=== PATIENT | female | born 1990 | race Two or more races ===

== ENCOUNTER 2024-08-07 15:59 | Observation (INO) | payer MEDICAID, SELFPAY ==
[2024-08-07 16:17] VITALS: BP 143/81; PULSE 81; RESP 18; TEMP 36.3; O2SAT 98; BMI 46.4
--- NOTE | 2024-08-07 16:39 | XR_ITS ---
Examination: Complete OB ultrasound greater than 14 weeks Date and time of exam: August 07, 2024 1727 hours INDICATIONS: Leaking amniotic fluid 3 weeks Findings: Viable intrauterine single fetus with single amniotic sac presentation cephalic spine maternal right Cardiac motion 145 BPM Placenta anterior grade 1 Umbilical cord insertion 3 vessel seen Amniotic fluid index 26 cm Cervix 6.1 cm closed Ovaries obscured by bowel gas. Composite estimated gestational age based on BPD, head circumference, abdominal circumference, femur length is 29 weeks 1 day Estimated weight 1316 g. Survey of intracranial anatomy, spinal anatomy, abdominal anatomy, four-chamber heart performed with no abnormalities identified. Impression: Viable intrauterine gestation cephalic presentation Amniotic fluid index 26.0 cm.
[2024-08-07 17:08] LABS: ROM Kit Lot # 57802192; ROM Swab Mixed By: YOUNB; Rupture of Fetal Membranes Negative (Negative); Swb Mxed in Solvent 1 min? Yes
[2024-08-07 18:31] VITALS: BP 150/80; PULSE 74; RESP 18; TEMP 36.3; O2SAT 98
[2024-08-07 18:56] LABS: FFN Specimen Descripton Clr Colrless Aqueous; Fetal Fibronectin Negative (Negative)
[2024-08-07 19:21] VITALS: BP 133/61; PULSE 81
== END 2024-08-07 19:50 | disposition home or self-care (01) ==
PROVIDERS: Admitting Provider Specialist; Visit Provider Specialist
DX: Z34.83 Encounter for supervision of other normal pregnancy, third trimester (principal); Z3A.28 28 weeks gestation of pregnancy
CPT/HCPCS: 59025; 59899; 76805; 82731; 84112

== ENCOUNTER 2024-09-26 20:51 | Observation (INO) | payer MEDICAID, SELFPAY ==
[2024-09-26 21:11] VITALS: BP 132/65; PULSE 85; RESP 100; RESP 19; TEMP 36.5
[2024-09-26 21:23] VITALS: TEMP 36.5; BMI 48.4
== END 2024-09-26 22:32 | disposition home or self-care (01) ==
PROVIDERS: Admitting Provider Specialist; Visit Provider Specialist
DX: O36.8130 Decreased fetal movements, third trimester, not applicable or unspecified (principal); O26.893 Other specified pregnancy related conditions, third trimester; M54.50 Low back pain, unspecified; R10.9 Unspecified abdominal pain; Z3A.35 35 weeks gestation of pregnancy
CPT/HCPCS: 59025; 59899

== ENCOUNTER 2024-10-07 14:59 | Observation (INO) | payer MEDICAID, SELFPAY ==
[2024-10-07 15:14] VITALS: BP 136/86; PULSE 115
[2024-10-07 15:19] VITALS: RESP 16; TEMP 36.7; O2SAT 96; BMI 48.9
[2024-10-07 15:53] LABS: ROM Kit Lot # 57809118; Swb Mxed in Solvent 1 min? Yes
[2024-10-07 15:54] LABS: ROM Swab Mixed By: HILEL; Rupture of Fetal Membranes Negative (Negative)
--- NOTE | 2024-10-07 16:13 | XR_ITS ---
Examination: Complete OB ultrasound greater than 14 weeks Date and time of exam: October 07, 2024 1631 hrs. Indications: Onset pelvic contractions pelvic pressure and leaking amniotic fluid beginning 3 days ago, labor evaluation Findings: Viable intrauterine single fetus with single amniotic sac presentation transverse head maternal left Cardiac motion 136 BPM Placenta anterior grade 2 Umbilical cord insertion 3 vessel seen Amniotic fluid index 14.8 cm Cervix 4.0 cm Ovaries obscured by bowel gas. Composite estimated gestational age based on BPD, head circumference, abdominal circumference, femur length is 37 weeks 4 days Estimated weight 3135.7 g. Survey of intracranial anatomy, spinal anatomy, abdominal anatomy, four-chamber heart performed with no abnormalities identified. Impression: Viable intrauterine gestation transverse presentation Estimated gestational age 37 weeks 4 days Estimated weight 3135.7 g.
[2024-10-07 17:01] VITALS: BP 131/71; PULSE 84
[2024-10-07 17:09] VITALS: BP 136/86; PULSE 115; RESP 16; RESP 96; TEMP 36.7
== END 2024-10-07 18:40 | disposition home or self-care (01) ==
PROVIDERS: Admitting Provider Specialist; Visit Provider Specialist
DX: O26.893 Other specified pregnancy related conditions, third trimester (principal); R10.9 Unspecified abdominal pain; O32.2XX0 Maternal care for transverse and oblique lie, not applicable or unspecified; Z3A.37 37 weeks gestation of pregnancy
CPT/HCPCS: 59025; 59899; 76805; 84112

== ENCOUNTER 2024-10-10 00:20 | Inpatient (IN) | payer MEDICAID, SELFPAY ==
[2024-10-10] VITALS (331 sets, daily range): BP systolic 0–197; BP diastolic 0–99; PULSE 69–142; RESP 16–19; TEMP 36.4–37.6; O2SAT 91–100; BMI 107.9; BMI 48.9
--- NOTE | 2024-10-10 00:58 | XR_ITS ---
Examination: age limited TECHNIQUE: Limited transabdominal sonographic images pelvis Standard blank line October 10, 2024 0149 hours INDICATIONS: Unknown presentation FINDINGS: Viable intrauterine gestation cephalic presentation Serial spine maternal right Cardiac motion 130 bpm IMPRESSION: Viable intrauterine gestation cephalic presentation
[2024-10-10] MEDS: MISOPROSTOL 50 mCg TABLET PO ×3 (03:40→12:39)
[2024-10-10 05:26] LABS: Syphilis Nonreactive (Nonreactive)
[2024-10-10 07:52] LABS: Basophils % (Auto) 0 % (0-2.5); Eosinophils # (Auto) 0.1 Thou/mm3 (0.0-0.5); Eosinophils % (Auto) 1 % (0-10); Hematocrit 34.8 % (36.0-46.0); Hemoglobin 11.8 g/dL (12.0-16.0); Immature Granulocytes % (Auto) 2 % (0-0); Immature Granulocytes Auto 0.21 Thou/mm3 (0.00-0.00); Lymphocytes # (Auto) 2.6 Thou/mm3 (1.0-4.8); Lymphocytes % (Auto) 25 % (10-50); Mean Corpuscular HGB Conc 33.9 g/dl (31.0-37.0); Mean Corpuscular Volume 80 fL (80-100); Monocytes % (Auto) 10 % (0-12); Neutrophils # (Auto) 6.6 Thou/mm3 (1.8-7.7); Neutrophils % (Auto) 62 % (37-80); Nucleated Red Blood Cell % 0 /100 WBC (0); Platelet Count 326 Thou/mm3 (140-440); RDW Standard Deviation 39.3 fL (36.4-46.3); Red Blood Count 4.37 Miln/mm3 (4.00-5.20); White Blood Count 10.6 Thou/mm3 (3.6-11.0)
--- NOTE | 2024-10-10 08:12 | PC.NURSE ---
[facility] downtime occurred on 10/10/24 from 0100 to 0700.
--- NOTE | 2024-10-10 09:11 | PD.LDHP ---
Documentation for date of: 10/10/24 OB Labor/Induct. HPI History of Present Illness History of present illness: H and P dictated on STAT line #9 in [place] [id number] Meds Home Medications and Allergies Home Medications ?Medication ?Instructions ?Recorded ?Confirmed ?Type loratadine 10 mg tablet (Claritin) 10 mg PO QDAY 08/07/24 10/07/24 History vit no.95-ferrous 1 tab PO QDAY 08/07/24 10/07/24 History fumarate 28 mg-folic acid 800 mcg tablet () Allergies Allergy/AdvReac Type Severity Reaction Status Date / Time aspirin Allergy Severe swollen Verified 10/10/24 08:31 lips guaifenesin AdvReac Mild ANXIETY, Verified 10/10/24 08:31 CAN'T SLEEP OB Exam Physical Exam Vital signs: Temp Pulse Resp BP Pulse Ox 98.3 F 75 19 128/74 98 10/10/24 07:03 10/10/24 09:06 10/10/24 07:03 10/10/24 09:06 10/10/24 09:11 OB Results Labs 10/10/24 01:10 Labs: Short CBC 10/10/24 Range/Units 01:10 WBC 10.6 (3.6-11.0) Thou/mm3 Hgb 11.8 L (12.0-16.0) g/dL Hct 34.8 L (36.0-46.0) % Plt Count 326 (140-440) Thou/mm3
[2024-10-10] MEDS: fentaNYL CIT INJ 50 mCg/ML AMP 2ML 100 MCG IV (14:53)
[2024-10-10] MEDS: RINGERS LACTATED 1000 ML 1,000 ML 100 ML IV ×2 (16:30→17:33)
[2024-10-10] MEDS: Ampicillin Inj 2,000 MG in SODIUM CHLORIDE 0.9% (P) 100 ML 100 MG IV (21:39)
[2024-10-10] MEDS: OXYTOCIN in NS 30 units 30 UNIT/500 ML BAG IV (21:55)
[2024-10-11] VITALS (40 sets, daily range): BP systolic 0–152; BP diastolic 0–92; PULSE 72–144; RESP 17–20; TEMP 36.6–37.2; O2SAT 91–100
--- NOTE | 2024-10-11 00:45 | PD.LDPN ---
Documentation for date of: 10/11/24 OB Labor Progress Note Pain Control Comments: epidural Pelvic Exam Dilation (cm): 6 Effacement (%): 70 station: -1 Amniotic membrane status: Ruptured Contractions Contraction frequency: q 3 min Status Comments: Category II Assessment and Plan Comments: Arrest of Dilation Informed consent was obtained. The patient was made aware of the risks, complications, alternatives and benefits of the proposed procedure and she agrees.
[2024-10-11] MEDS: ceFAZolin/D5W 2 GM IV 2 GM/100 ML BAG IV ×4 (00:55→21:26)
[2024-10-11] MEDS: FAMOTIDINE INJ 10 MG/ML VIAL 2 ML 20 MG IV (00:55)
[2024-10-11] MEDS: CITRIC ACID/SODIUM CITR 15 ML UDC (BICITRA) 30 ML PO (00:55)
--- NOTE | 2024-10-11 01:14 | PD.LDDS ---
DS: Providers Provider Date of admission: 10/10/24 00:57 Primary care physician: Physician No Primary/Family Admitting Provider: Greg Robledo MD Attending Provider on Admission: Greg Robledo MD Attending Provider on DC: Greg Robledo MD Discharging Provider: Greg Robledo MD DS: Diagnosis Problem List Completed Was Problem List Reviewed/Reconciled?: Yes Summary/Hosp Course Brief History: H and P dictated on STAT line #9 in [facility] [id number] Time Spent with Patient Time attestation: Total time spent providing and/or coordinating discharge services: Exam Vital Signs Temp Pulse Resp BP Pulse Ox 99.6 F 116 H 16 113/55 L 97 10/10/24 23:35 10/11/24 01:05 10/10/24 18:00 10/11/24 01:05 10/11/24 01:07 Discharge Plan Plan Patient Disposition: HOME (Self Care) Patient condition on transfer: Stable Prescriptions/Referrals Prescriptions/Med Rec: New hydrocodone-acetaminophen 5-325 mg tablet 1 tab PO Q6H MDD 4 PRN (Reason: pain) Qty: 20 0RF Continued PNV cmb#95-ferrous fumarate-FA [] 28 mg iron- 800 mcg Tablet 1 tab PO QDAY loratadine [Claritin] 10 mg Tablet 10 mg PO QDAY Referrals: No Primary/Family,Physician [Primary Care Provider] - Patient/Caregiver Discharge Instructions Discharge Activity: activity as tolerated Other Discharge Activity Instructions:: Follow up office 1 week Print Language: Sammarinese Stand Alone Forms: [facility] Award Info., Patient Portal Info Letter Discharge Order Discharge Orders: Discharge (Routine); Ordered 10/13/24 Ordered By: Greg Robledo Planned Discharge Date 10/13/24
[2024-10-11] MEDS: OXYTOCIN in NS 20 units 20 UNIT/1,000 ML BAG 999 UNIT IV ×2 (02:45→05:20)
[2024-10-11] MEDS: ACETAMINOPHEN IVPB 1,000 MG/100 ML VIAL 250 MG IV (05:58)
--- NOTE | 2024-10-11 08:35 | PD.LDDELS ---
Data (Morrison) Data Hx Section: No : 5 Para: 2 Term: 2 : 0 : 2 Delivery Data (Morrison) Labor Data ROM Date: 10/09/24 ROM Time: 23:30 Rupture Type: SROM Amniotic Fluid: Clear Delivery Data EDC: 10/26/24 EDC calculated by:: LMP/early US confirmation Labor Onset Stage 1 Date: 10/10/24 Labor Onset Stage 1 Time: 16:03 Labor Onset Stage 2 Date: 10/11/24 Labor Onset Stage 2 Time: 01:15 Delivery Date: 10/11/24 Delivery Time: :44 Gestational age (weeks): 37 Gestational age (days): 6 Placenta Delivery Date: 10/11/24 Placenta Delivery Time: 01:45 Delivered by: Greg Robledo Delivery nurse: Adriana Badillo Other staff at delivery: TARA Other staff at delivery: Nurse Other staff at delivery: Scar Pederson Other staff at delivery: Gladys Aggarwal Delivery Method Delivery: Delivery Type: Primary Presentation: Vertex (Occiput posterior) Position: OP Anesthesia Type Primary Anesthesia: Epidural Secondary Anesthesia: Epidural Placenta Placenta Delivery: Manual Placenta Cultures Obtained: No Placenta Sent for Examination: No Cord Sample: Cord Blood Obtained EBL Estimated blood loss (ml): 900 Umbilical Cord Nuchal Cord: x1 Tightly Additional Procedures None Complications Complications: None Data (Morrison) Data Infant Gender: Male Infant Weight Grams: 3475 1 Minute Total: 8 5 Minute Total: 9
[2024-10-11 09:00] LABS: Basophils # (Auto) 0.1 Thou/mm3 (0.0-0.2); Basophils % (Auto) 0 % (0-2.5); Eosinophils % (Auto) 0 % (0-10); Hematocrit 31.9 % (36.0-46.0); Hemoglobin 10.7 g/dL (12.0-16.0); Immature Granulocytes % (Auto) 1 % (0-0); Immature Granulocytes Auto 0.19 Thou/mm3 (0.00-0.00); Lymphocytes # (Auto) 1.1 Thou/mm3 (1.0-4.8); Lymphocytes % (Auto) 6 % (10-50); Mean Corpuscular HGB Conc 33.5 g/dl (31.0-37.0); Mean Corpuscular Hemoglobin 26.6 pg (25.0-35.0); Mean Corpuscular Volume 79 fL (80-100); Monocytes # (Auto) 0.8 Thou/mm3 (0.0-0.8); Monocytes % (Auto) 5 % (0-12); Neutrophils # (Auto) 16.2 Thou/mm3 (1.8-7.7); Neutrophils % (Auto) 88 % (37-80); Nucleated Red Blood Cell % 0 /100 WBC (0); Platelet Count 308 Thou/mm3 (140-440); RDW Standard Deviation 40.2 fL (36.4-46.3); Red Blood Count 4.02 Miln/mm3 (4.00-5.20); White Blood Count 18.3 Thou/mm3 (3.6-11.0)
[2024-10-11] MEDS: HYDROcodone/APAP 5/325 TABLET 1 TAB PO ×3 (09:27→23:35)
--- NOTE | 2024-10-11 15:33 | ESOP_ITS ---
RE: DEBBIE CAMACHO : 1990 DATE OF OPERATION: 10/11/2024 PREOPERATIVE DIAGNOSES: 1. Intrauterine at 37 weeks and 6 days. 2. Premature rupture of membranes. 3. Prolonged rupture of membranes. 4. Induction of labor. 5. Arrest of dilatation. POSTOPERATIVE DIAGNOSES: 1. Intrauterine at 37 weeks and 6 days. 2. Premature rupture of membranes. 3. Prolonged rupture of membranes. 4. Induction of labor. 5. Arrest of dilatation. 6. Occiput posterior. 7. Tight nuchal cord. PROCEDURE PERFORMED: A primary low transverse section via Pfannenstiel skin incision. SURGEON: Greg Robledo DO RADIOACTIVE WASTE DISPOSAL DISPATCHER: LLUVIA Wyman ANESTHESIA: Epidural. ANESTHESIOLOGIST: Scra Baez CRNA ESTIMATED BLOOD LOSS: 900 mL. COMPLICATIONS: None. COUNTS: Correct. PATHOLOGY: None. FINDINGS: A live male . Cephalic presentation. Clear amniotic fluid. , see RN notes. Placenta removed completely intact. Uterus, ovaries, fallopian tubes grossly within normal limits. DESCRIPTION OF PROCEDURE: After proper informed consent was obtained and the patient was made aware of the risks, complications, alternatives, benefits of the proposed procedure, she was taken to the operating room where she underwent induction of epidural anesthesia. She was prepped and draped in the usual sterile fashion. A timeout was performed. A Pfannenstiel skin incision was made with scalpel, carried through to the underlying layer of the fascia with the Bovie. The fascia was nicked in the midline. Incision extended bilaterally with the Bovie. The inferior aspect of the fascial incision was grasped with Mary clamps and elevated. The underlying rectus muscle was dissected off with the Bovie. The rectus muscles were at the midline. The peritoneum identified between two Chester clamps and entered sharply with the Metzenbaum scissors. The incision was extended superiorly inferiorly with good visualization of the bladder. The bladder blade was then inserted. The vesicouterine peritoneum was incised transversely and the bladder flap created digitally. Bladder blade was reinserted. The lower uterine segment was incised in transverse fashion with the scalpel. The incision was extended bilaterally digitally. The 's head was delivered. The mouth and nose was suctioned with a bulb suction. The nuchal cord was reduced. Shoulder and body delivered atraumatically. The cord was camped and cut. The was sent off to awaiting pediatric staff. Cord blood and gases were sent. The placenta was then removed manually. The uterus exteriorized and cleared of all clots and debris. The uterus incision was repaired with #1-0 chromic catgut suture in running locking fashion. The second layer of same suture was used to imbricate the first layer and obtained excellent hemostasis. The vesicouterine peritoneum was closed with 2-0 chromic catgut suture in running fashion. The uterus was returned to the abdomen. The gutters were cleared off all clots and debris. The fundus was firm. The peritoneum was closed with the chromic catgut suture in running fashion. The muscle was closed with the chromic catgut suture in running fashion. The fascia was closed with #0 Vicryl beginning at each angle and ending center in running fashion. Subcutaneous tissue was irrigated with normal saline solution, found to be hemostatic, closed with 2-0 chromic catgut suture in running fashion. The skin was closed with 4-0 Monocryl. A Dermabond Prineo dressing was applied. A sterile pressure dressing was applied. She tolerated the procedure well. Counts were correct. I discussed with the patient the nature of her condition, the intraoperative findings, expectation for recovery. All questions were answered. DT: 02:25:33 TT: 03:52:00 Ref: [id number] - TID: [id number]
[2024-10-11] MEDS: ACETAMINOPHEN 325 MG TABLET 650 MG PO (18:12)
[2024-10-12 00:35] VITALS: BP 121/78; PULSE 96; RESP 16; TEMP 36.7; O2SAT 97
[2024-10-12 07:42] VITALS: BP 133/78; PULSE 95; RESP 17; TEMP 36.8
--- NOTE | 2024-10-12 07:49 | ESPR_ITS ---
RE: DEBBIE CAMACHO : 1990 DATE OF SERVICE: 10/12/2024 SUBJECTIVE: Postop day #1, the patient denies any problem or complaints. She is voiding. She is ambulating. She is tolerating diet. She is passing flatus. She denies any excessive vaginal bleeding. She denies any dizziness or lightheadedness. She denies any chest pain, palpitations, shortness of breath or lower extremity pain. OBJECTIVE: Vital Signs: Blood pressure 121/78, heart rate 96, respirations 16, temperature is 98, pulse ox is 97% on room air. Lungs: Clear to auscultation bilaterally. Heart: Regular rate and rhythm. Abdomen: Fundus is firm. Incision is clear and intact. Extremities: Nontender. No edema. LABORATORY DATA: Hemoglobin pre-delivery is 11.8, post delivery is 10.7. ASSESSMENT: Postop day #1, status post delivery. PLAN: Encourage ambulation, support, possible discharge home tomorrow. DT: 06:42:33 TT: 07:47:00 Ref: [id number] - TID: [id number]
[2024-10-12] MEDS: Milk Of Magnesia Susp 30 ML UDC PO (09:03)
[2024-10-12] MEDS: ACETAMINOPHEN 325 MG TABLET 650 MG PO ×2 (09:04→17:04)
[2024-10-12] MEDS: ENOXAPARIN SOD INJ 40 MG/0.4 ML SYRINGE SC (09:04)
--- NOTE | 2024-10-12 11:01 | PC.SS ---
PAGE DESIGNER conducted bedside contact with the patient to address nursing referral indicating patient possessed history of depression.? PAGE DESIGNER introduced self and role.? Present with the patient was Gareth CARLOS .? Patient gave permission for PAGE DESIGNER to discuss referral in presence of FOB.? Patient confirmed history of depression.? Patient stated that depressive mood due to patient experiencing miscarriage last year.? Patient stated that depressive state has been resolved.? Patient confirmed presence of depressive mood circumstantial with trigger identified as miscarriage.? Patient denies participation with mental health services or possession of mental health diagnosis.? Patient denies impairment with daily functioning.? Patient denies current intent/plan of SI/HI.? FOB disclosed no concerns with patient?s current functioning.? [place], [place]; was delivered via .? is the patinet?s 3rd child. ?Other children are ages, 16 and 13.? Patient is receiving WIC and SNAP.? Patient is not receiving TANF.? Patient denies history of alcohol/drug abuse.? Patient denies CWS intervention.? Patient denies episodes of domestic violence.? OB services conducted with Dr. Robledo.? Dr. Hoffman will be the ?s barber stylist.? Patient plans on bottle feeding the .? Patient has access to appropriate supplies and equipment; to include a car seat.? FOB will provide transportation upon discharge.? Patient describes possessing support system consisting of FOB and extended family.? PAGE DESIGNER provided the patient with community resources to include [facility] and [employer] Line.? No further intervention required at this time, adoption social worker will be available to address any further concerns.? PAGE DESIGNER updated bedside nurse.?
[2024-10-12] MEDS: bisacodyL 5 MG TABEC PO (17:04)
[2024-10-12 19:30] VITALS: BP 124/83; PULSE 102; RESP 16; TEMP 36.9; O2SAT 97
[2024-10-13 03:45] VITALS: BP 106/70; PULSE 86; RESP 18; TEMP 36.9; O2SAT 95
[2024-10-13] MEDS: HYDROcodone/APAP 5/325 TABLET 1 TAB PO (03:58)
--- NOTE | 2024-10-13 07:59 | ESPR_ITS ---
RE: DEBBIE CAMACHO : 1990 DATE OF SERVICE: 10/13/2024 S: day #2, the patient denies any problem or complaints. She is voiding. She is ambulating. She is tolerating a regular diet. She is passing flatus. She denies any excessive vaginal bleeding. She denies any dizziness or lightheadedness. She denies any chest pain, palpitations, shortness of breath or lower extremity pain. O: Vital Signs: Blood pressure 106/70, heart rate 86, respirations 18, temperature is 98.5, and pulse ox is 95% on room air. Lungs: Clear to auscultation bilaterally. Heart: Regular rate and rhythm. Abdomen: Nondistended. Incision clear and intact. Extremities: Nontender. A: Postop day #2, status post delivery. P: Discharge home. Discharge instructions given. Follow up in the office in 1 week. DT: 07:36:00 TT: 07:57:00 Ref: [id number] - TID: [id number]
[2024-10-13 08:00] VITALS: BP 116/77; PULSE 81; RESP 18; TEMP 36.8; O2SAT 95
[2024-10-13] MEDS: ENOXAPARIN SOD INJ 40 MG/0.4 ML SYRINGE SC (09:45)
[2024-10-13 12:20] VITALS: BP 126/73; PULSE 87; RESP 18; TEMP 36.9; O2SAT 95
== END 2024-10-13 15:53 | disposition home or self-care (01) | DRG 540 ==
LOC: S4SX 10-11 01:12 → S4NX 10-11 01:17
PROVIDERS: Admitting Provider Specialist; Visit Provider Specialist
PROC: 10D00Z1 Extraction of Products of Conception, Low, Open Approach (ICD-10-PCS; CPT 59514; principal; 2024-10-11 01:20)
DX: O42.02 Full-term premature rupture of membranes, onset of labor within 24 hours of rupture (principal); O69.1XX0 Labor and delivery complicated by cord around neck, with compression, not applicable or unspecified; O62.0 Primary inadequate contractions; Z3A.37 37 weeks gestation of pregnancy; Z37.0 Single live birth
CPT/HCPCS: 36415; 59409; 76815; 85025; 86780; 86850; 86900; 86901; J0131; J0290; J0689; J1100; J1650; J2250; J2371; J2405; J2590; J2795; J3010; J3490; J7120; A9270